=== PATIENT | male | born 2000 | race Two or more races ===

== ENCOUNTER → 2024-04-17 08:22 | Outpatient (CLI) | payer OTHER | END | disposition home or self-care (01) | LOC: NUCLEAR 08:22 | DX: R10.11 Right upper quadrant pain (principal) ==

== ENCOUNTER 2024-11-10 08:34 | Outpatient (CLI) | payer OTHER | END 2024-11-10 08:38 | disposition home or self-care (01) | LOC: TOM 08:34 | PROVIDERS: ATTEND Internal Medicine Gastroenterology | DX: R74.01 Elevation of levels of liver transaminase levels (principal); R30.9 Painful micturition, unspecified ==